=== PATIENT | male | born 1950 | race Hispanic/Latino ===

== ENCOUNTER 2017-06-23 00:35 | Inpatient (IN) | payer MEDICAID ==
[2017-06-23] MEDS ORDERED: Lidocaine 2% Jelly (Uro-Jet) ONE (01:04)
[2017-06-23] MEDS ORDERED: Lidocaine 2% Jelly (Uro-Jet) TOP ONE (01:23)
--- NOTE | 2017-06-23 01:25 | C.PDOC ---
Time Seen by Provider: 06/23/17 00:59 Chief Complaint (Nursing): Male Genitourinary Past Medical History Vital Signs: Last Vital Signs Temp 98 F 06/23/17 00:43 Pulse 89 06/23/17 00:43 Resp 20 06/23/17 00:43 BP 148/89 06/23/17 00:43 Pulse Ox 98 06/23/17 00:43 - Social History Hx Alcohol Use: No Hx Substance Use: No - Immunization History Hx Tetanus Toxoid Vaccination: No Hx Influenza Vaccination: No Hx Pneumococcal Vaccination: No ED Course And Treatment O2 Sat by Pulse Oximetry: 98 Disposition Counseled Patient/Family Regarding: Studies Performed, Diagnosis - Disposition Disposition Time: 01:22 Condition: FAIR
--- NOTE | 2017-06-23 01:28 | C.PDOC ---
History Of Present Illness Patient is a 66 y/o male who presents to the ED with complaints of urinary retention and hematuria. Patient admits he has not urinated in the last 4-5 hours, describing pain as sharp, cramping, suprapubic. Patient has a PSHx of TURP last week by Dr. Cavazos. No other physical complaints at this time. Time Seen by Provider: 06/23/17 00:59 Chief Complaint (Nursing): Male Genitourinary History Per: Patient History/Exam Limitations: no limitations Onset/Duration Of Symptoms: Hrs Current Symptoms Are (Timing): Still Present Severity: Severe Pain Scale Rating Of: 6 Quality Of Discomfort: Sharp, Cramping Associated Symptoms: denies: Fever, Chills Alleviating Factors: None Recent travel outside of the [place]: No Additional History Per: Patient Past Medical History Reviewed: Historical Data, Nursing Documentation, Vital Signs Vital Signs: Last Vital Signs Temp 97.2 F L 06/23/17 01:30 Pulse 63 06/23/17 01:30 Resp 16 06/23/17 01:30 BP 120/80 06/23/17 01:30 Pulse Ox 98 06/23/17 01:39 - Medical History PMH: No Chronic Diseases Surgical History: No Surg Hx Family History: States: No Known Family Hx - Social History Hx Alcohol Use: No Hx Substance Use: No - Immunization History Hx Tetanus Toxoid Vaccination: No Hx Influenza Vaccination: No Hx Pneumococcal Vaccination: No Review Of Systems Constitutional: Negative for: Fever, Chills Cardiovascular: Negative for: Chest Pain Respiratory: Negative for: Shortness of Breath Gastrointestinal: Positive for: Abdominal Pain (suprapubic pain) Genitourinary: Positive for: Hematuria, Other (urinary retention) Musculoskeletal: Negative for: Back Pain Skin: Negative for: Rash Neurological: Negative for: Weakness Psych: Negative for: Anxiety Physical Exam - Physical Exam Appears: Non-toxic, In Acute Distress Skin: Warm, Dry Head: Normacephalic Oral Mucosa: Moist Neck: Supple Chest: Symmetrical Cardiovascular: Rhythm Regular Respiratory: No Rales, No Rhonchi, No Wheezing Gastrointestinal/Abdominal: Soft, Tenderness (suprapubic), Distention, No Guarding, No Rebound Male Genital: Normal Inspection, No Inguinal Swelling, No Scrotal Swelling Extremity: Normal ROM Extremity: Bilateral: Atraumatic Pulses: Left Dorsalis Pedis: Normal, Right Dorsalis Pedis: Normal Neurological/Psych: Oriented x3, Normal Speech Gait: Steady ED Course And Treatment - Laboratory Results Result Diagrams: 06/23/17 01:49 06/23/17 01:49 O2 Sat by Pulse Oximetry: 98 Pulse Ox Interpretation: Normal Progress Note: Plan: blood work ordered. Xylocaine, zofran, morphine, and IV fluids administered. A 22 frisian 3-way duvall catheter was placed without difficulty; patient tolerated procedure well. Started irigation; on re- evaluation, patient feels better , and the hematuria is slowly clearing Disposition Discussed With Dr.: Dameon Bassett Comment: accepted the pt on his service and took over the care at 3 AM Doctor Will See Patient In The: ED Counseled Patient/Family Regarding: Studies Performed, Diagnosis - Disposition Disposition: HOSPITALIZED Disposition Time: Condition: FAIR Forms: [facility] (Estonian) - Clinical Impression Clinical Impression: Acute urinary retention, Hematuria - Scribe Statement The provider has reviewed the documentation as recorded by the Scribe Arpita Awad All medical record entries made by the Scribe were at my direction and personally dictated by me. I have reviewed the chart and agree that the record accurately reflects my personal performance of the history, physical exam, medical decision making, and the department course for this patient. I have also personally directed, reviewed, and agree with the discharge instructions and disposition. Decision To Admit - Pt Status Changed To: Hospital Disposition Of: Inpatient - Admit Certification Admit to Inpatient:: After my assessment, the patient will require hospitalization for at least two midnights. This is because of the severity of symptoms shown, intensity of services needed, and/or the medical risk in this patient being treated as an outpatient. - InPatient: Physician Admission Certification: I certify that this patient requires 2 or more midnights of care for the following reason:: After my assessment, the patient will require hospitalization for at least two midnights. This is because of the severity of symptoms shown, intensity of services needed, and/or the medical risk in this patient being treated as an outpatient. - . Bed Request Type: Regular Admitting Physician: Dameon Bassett Patient Diagnosis: Acute urinary retention
[2017-06-23] MEDS ORDERED: Morphine 4 MG/ML VIAL ONE ×3 (01:49→05:04)
[2017-06-23] MEDS ORDERED: Sodium Chloride 0.9% 1,000 ML ONE (01:50)
[2017-06-23 01:54] LABS: BASO # 0.1 K/uL (0.0-0.2); BASO % 0.7 % (0.0-2.0); EOS # 0.2 K/uL (0.0-0.7); EOS % 1.9 % (0.0-4.0); HEMOGLOBIN 13.8 g/dL (12.0-18.0); LYMPH # 2.8 K/uL (1.0-4.3); LYMPH % 25.3 % (20.0-40.0); MEAN CELL VOLUME 92.8 fL (80.0-94.0); MEAN CORPUSCULAR HEMOGLOBIN 32.2 pg (27.0-31.0); MEAN CORPUSCULAR HGB CONC 34.7 g/dL (33.0-37.0); MEAN PLATELET VOLUME 7.1 fL (7.2-11.7); MONO # 0.5 K/uL (0.0-0.8); MONO % 4.5 % (0.0-10.0); NEUT # 7.4 K/uL (1.8-7.0); NEUT % 67.6 % (50.0-75.0); NRBC % 0.1 % (0.0-2.0); RBC 4.3 Mil/uL (4.40-5.90); RED CELL DISTRIBUTION WIDTH 13.4 % (11.5-14.5)
[2017-06-23] MEDS: Sodium Chloride 0.9% 1,000 ML IV SCH ×3 (01:58→21:26)
[2017-06-23 02:01] LABS: PROTHROMBIN TIME 11.6 SECONDS (9.7-12.2)
[2017-06-23 02:08] LABS: BLOOD UREA NITROGEN 17 mg/dL (9-20); GFR AFRICAN-AMERICAN > 60; GFR NON-AFRICAN AMERICAN > 60
[2017-06-23] MEDS ORDERED: Morphine 4 MG/ML VIAL IVP ONE (02:47)
--- NOTE | 2017-06-23 07:15 | CT ---
EXAM: CT Abdomen and Pelvis Without Intravenous Contrast CLINICAL HISTORY: 66 years old, male; Pain; Abdominal pain; Additional info: Abd distention TECHNIQUE: Axial computed tomography images of the abdomen and pelvis without intravenous contrast. All CT scans at this facility use one or more dose reduction techniques, viz.: automated exposure control; ma/kV adjustment per patient size (including targeted exams where dose is matched to indication; i.e. head); or iterative reconstruction technique. 747 images are submitted. Coronal and sagittal reformatted images were created and reviewed. COMPARISON: No relevant prior studies available. FINDINGS: Lower thorax: Bibasilar nonspecific infiltrates are present, consistent with atelectasis or pneumonia. Small to moderate hiatal hernia. ABDOMEN:Limitations: Absence of IV contrast decreases sensitivity for detecting solid organ and vascular abnormality and injury. Liver: Unremarkable. Gallbladder and bile ducts: Unremarkable. No ductal dilation. Pancreas: Unremarkable. No ductal dilation. Spleen: Unremarkable. No splenomegaly. Adrenals: Unremarkable. No mass. Kidneys and ureters: Bilateral perinephric scarring and inflammation related mild to moderate hydroureteronephrosis likely due to distended bladder. No calcified ureteral stones are identified. Stomach and bowel: There is gastroduodenal distention with relative transition in the left upper quadrant seen on image 43 series 2 correlation with clinical data is recommended if upper GI obstruction is clinically suspected. Diverticulosis. No mucosal thickening. Appendix: Normal appendix. PELVIS: Bladder: Distended bladder measuring 17 cm with a large hyperdense bladder hematoma and hemorrhage measuring 10 cm. There is Lau catheter which appears to be distended in the base of the bladder/proximal prostatic urethra as seen on image 94 series 2. Repositioning is recommended if clinically indicated. Reproductive: Enlarged prostate gland. ABDOMEN and PELVIS: Intraperitoneal space: There is inflammatory change within the root of the mesentery. There are multiple small subcentimeter mesenteric lymph nodes. Mild inhomogeneity of the central mesentery with scattered subcentimeter lymph nodes. --- Nonspecific finding - possible reactive infectious process, mesenteric panniculitis vs. other inflammatory process. No free air. No significant fluid collection. Bones/joints: No acute fracture. No dislocation. Soft tissues: There is a fat-containing umbilical hernia. Vasculature: Unremarkable. No abdominal aortic aneurysm. Lymph nodes: Subcentimeter lymph nodes. Other findings: COPD. IMPRESSION: 1. Distended bladder measuring 17 cm with a large hyperdense bladder hematoma and hemorrhage measuring 10 cm. 2. There is Lau catheter which appears to be distended in the base of the bladder/proximal prostatic urethra as seen on image 94 series 2. Repositioning further into the bladder is recommended if clinically indicated. 3. There is gastroduodenal distention with relative transition in the left upper quadrant seen on image 43 series 2 correlation with clinical data is recommended if ileus versus upper GI obstruction is clinically suspected. 4. Bilateral perinephric scarring and inflammation related mild to moderate hydroureteronephrosis likely due to distended bladder. No calcified ureteral stones are identified.
[2017-06-23] MEDS ORDERED: Gentamicin 160 MG in Sodium Chloride 0.9% 100 ML IVPB ONE (13:14)
[2017-06-23] MEDS ORDERED: Ciprofloxacin 400mg/200ml D5W 400 MG/200 ML BAG IVPB ONE (13:14)
[2017-06-23] MEDS ORDERED: HYDROmorphone 0.5 mg/0.5 ml ISec IVP PRN (13:18)
[2017-06-23] MEDS ORDERED: Propofol 10 mg/ml Inj (20 ML) ONE (13:38)
--- NOTE | 2017-06-23 14:11 | CP.PCM.PN ---
Subjective - Date & Time of Evaluation Date of Evaluation: 06/23/17 Time of Evaluation: 12:00 - Subjective Subjective: PT was evaluated,ct reviewed, pt has large amount of clotted blood in blader will procede with cysto evac clots today. Jesus Objective - Vital Signs/Intake and Output Vital Signs (last 24 hours): Temp Pulse Resp BP Pulse Ox 97.7 F 75 20 160/81 H 97 06/23/17 06:10 06/23/17 06:10 06/23/17 06:10 06/23/17 06:10 06/23/17 06:10 - Medications Medications: Current Medications Hydromorphone HCl (Dilaudid) 0.5 mg IVP Q10M PRN PRN Reason: Pain, moderate (4-7) Stop: 06/23/17 15:18 Sodium Chloride (Sodium Chloride 0.9%) 1,000 mls @ 100 mls/hr IV .Q10H [facility] Last Admin: 06/23/17 13:09 Dose: Not Given Gentamicin Sulfate 160 mg/ (Sodium Chloride) 104 mls @ 104 mls/hr IVPB ONCE ONE Stop: 06/23/17 14:13 Ibuprofen (Motrin Tab) 400 mg PO Q8H PRN PRN Reason: Pain, moderate (4-7) Pneumococcal Polyvalent Vaccine (Pneumovax 23 Vaccine) 0.5 ml IM .ONCE ONE Stop: 06/25/17 12:07 - Labs Labs: 06/23/17 01:49 06/23/17 01:49 PT 11.6 SECONDS (9.7-12.2) 06/23/17 01:49 INR 1.0 06/23/17 01:49 APTT 27 SECONDS (21-34) 06/23/17 01:49
--- NOTE | 2017-06-23 14:15 | PCM.SURG1 ---
Surgeon's Initial Post Op Note - Surgeon's Notes Surgeon: Jesus Tax Expert: serafin Type of Anesthesia: General LMA Anesthesia Administered By: staff Pre-Operative Diagnosis: URINARY CLOT RETENTION Operative Findings: lARGE AMOUNT OF CLOTTED BLOD IM BLADDER Post-Operative Diagnosis: SAME Operation Performed: CYSTO EVACUATION OF CLOTS Specimen/Specimens Removed: CLOTTED BLOOD Estimated Blood Loss: EBL {In ML}: 300 (OLD CLOTTED POND) Blood Products Given: N/A Drains Used: No Drains Post-Op Condition: Good Date of Surgery/Procedure: 06/23/17 Time of Surgery/Procedure: 14:15
[2017-06-23] MEDS ORDERED: Oxycodone/Acetaminophen 5/325 mg Tab PO PRN (14:42)
--- NOTE | 2017-06-23 16:23 | CON ---
DATE: REASON FOR THE CONSULTATION: Gross hematuria and urinary retention. THE HISTORY OF THE PRESENT ILLNESS: The patient had a GreenLight laser prostatectomy approximately 3 weeks ago and was doing well until Sunday when he began having blood, then he was unable to urinate. He came to the emergency room. The patient had a Lau catheter inserted by the emergency staff and he was admitted to the hospital. The patient underwent CAT scan, which showed that he had a large amount of clotted blood within his bladder and that the Lau catheter was blown up in the posterior urethra. REVIEW OF SYSTEMS: Respiratory system: The patient has no shortness of breath or wheezing. Cardiac history: The patient has no chest pain or palpitations. GI: The patient has no nauseousness, vomiting or change in bowel habits. : The patient has a history of GreenLight laser approximately 3 weeks ago. He had been voiding without difficulty until Sunday. Orthopedic history: The patient has no history of orthopedic fractures or joint disease or deformities. Neurological system: The patient has no history of tremors, weakness, slurred speech. Has no history of prior CVA. Integumentary: The patient has no history of skin lesions or skin problems. Psychiatric history: The patient has no history of psychiatric illness. PHYSICAL EXAMINATION: VITAL SIGNS: The patient is afebrile, temperature is 98.6; blood pressure is 122/80; respirations are 30 and pulse is 68. LABORATORY DATA: I have also reviewed the patient's lab data. He has a normal hemoglobin and hematocrit. Urinalysis shows grossly bloody urine. I have also reviewed the patient's CAT scan of the abdomen and pelvis, which shows a large amount of clotted blood in the bladder, urinary retention and the Lau catheter balloon in the prostatic fossa. IMPRESSION: My impression is urinary clot retention, malpositioned Lau catheter. PLAN: After reviewing the films and examining the patient, I feel the patient needs to proceed to the OR today. We notified the OR and waiting for the next available time. Marcin Lee MD
--- NOTE | 2017-06-23 18:47 | OP ---
PROCEDURE DATE: 06/23/2017 PREOPERATIVE DIAGNOSIS: Urinary clot retention and malpositioned Lau catheter. PROCEDURE: Cystoscopy, evacuation of clots and insertion of hematuria catheter, FINDINGS: A large amount of clotted blood, approximately 300 mL, within the bladder. No visible site of active bleeding. Evidence of previous GreenLight laser prostatectomy. The procedure is as follows. DESCRIPTION OF PROCEDURE: Prior to the procedure, the patient was asked to sign a detailed informed consent. The patient's entire chart was reviewed. The patient agreed to the procedure and was brought into the room and draped and prepped in the usual manner. Time-out was taken according to the rules and regulations of [facility]. The patient's Lau catheter was removed and the patient was cystoscoped with a #25 Storz panendoscope. The pendulous and membranous urethra were normal. Prostatic urethra showed evidence of previous laser prostatectomy, but no evidence of obstruction. The bladder was entered atraumatically. It was filled with clotted blood. The clots were irrigated out with a Aaron syringe until all clots were removed from the bladder. The bladder was inspected thoroughly with both the 30 and 70-degree lens. There was no evidence of urothelial tumor or stone. There was some minor oozing from the prostatic fossa consistent with the recent postoperative state. The bladder was filled. The catheter was removed and a #24 three-way 30 mL hematuria catheter was inserted into the bladder and clear irrigant fluid drainage resulted. It was inflated with the appropriate amount of saline and CBI was began immediately. The CBI was clear. The patient was sent to the recovery room in good condition. Marcin Lee MD
--- NOTE | 2017-06-23 22:25 | HP ---
HISTORY OF PRESENT ILLNESS: This is a 66-year-old white male, who came to the emergency room with a history of retention of urine. The patient has hematuria. The patient claims he is passing his blood clots. The patient denies having any dizziness. The patient is not on any medication. No history of chest pain or shortness of breath. PAST MEDICAL HISTORY: History of BPH. MEDICATIONS: The patient is not on any medication. FAMILY HISTORY: No known inherited disease. SOCIAL HISTORY: Nonsmoker, nonalcoholic. No IVDA. REVIEW OF SYSTEMS RESPIRATORY SYSTEM: Negative for shortness of breath. CARDIOVASCULAR SYSTEM: Negative for chest pain. GASTROINTESTINAL SYSTEM: Negative for nausea or vomiting. Lower abdominal pain present. CENTRAL NERVOUS SYSTEM: No focal neurological complaints. The patient has hematuria. No fever. No backache. PSYCHIATRIC: The patient is stable. All other systems are negative. ALLERGIES: NO KNOWN ALLERGIES. PHYSICAL EXAMINATION: GENERAL: This is a 66-year-old white male, alert and oriented, comfortable. VITAL SIGNS: Temperature 98.8, pulse 70 per minute, respirations normal, blood pressure 120/78 mmHg, and pulse ox is 100% on room air. HEENT: Normal. JVP is flat. Carotids, no bruit. LUNGS: No rales, no wheezing. HEART: S1, S2 normal. No gallop. No murmur. ABDOMEN: Soft, nontender. No organomegaly. CENTRAL NERVOUS SYSTEM: No focal neurological deficits. LABORATORY DATA: In the emergency room, the patient had a CT scan of the pelvis and abdomen done, which shows a large amount of blood in the bladder. The patient's Lau catheter is half way. IMPRESSION: Hematuria, acute urinary retention. PLAN: The patient will be admitted to the floor. We will get consult with Dr. Cavazos. The patient may need cystoscopy. Other workup as needed. Darlene Bajwa MD
[2017-06-24] MEDS: Sodium Chloride 0.9% 1,000 ML IV SCH ×2 (06:00→08:30)
[2017-06-24 08:21] LABS: BASO % 0.4 % (0.0-2.0); EOS # 0.2 K/uL (0.0-0.7); EOS % 2.9 % (0.0-4.0); LYMPH # 2.4 K/uL (1.0-4.3); MEAN CELL VOLUME 94.5 fL (80.0-94.0); MEAN CORPUSCULAR HEMOGLOBIN 31.8 pg (27.0-31.0); MEAN CORPUSCULAR HGB CONC 33.6 g/dL (33.0-37.0); MEAN PLATELET VOLUME 7.5 fL (7.2-11.7); MONO # 0.5 K/uL (0.0-0.8); MONO % 6.5 % (0.0-10.0); NEUT # 4.8 K/uL (1.8-7.0); NEUT % 60.2 % (50.0-75.0); RBC 3.71 Mil/uL (4.40-5.90); RED CELL DISTRIBUTION WIDTH 13.4 % (11.5-14.5); WHITE BLOOD COUNT 8.1 K/uL (4.8-10.8)
[2017-06-24 08:39] LABS: HEMOGLOBIN 11.8 g/dL (12.0-18.0)
[2017-06-24 08:47] LABS: ALB/GLOB RATIO 1.2 (1.0-2.1); ALBUMIN 3.2 g/dL (3.5-5.0); ALT/SGPT 22 U/L (21-72); AST/SGOT 13 U/L (17-59); BLOOD UREA NITROGEN 9 mg/dL (9-20); CALCIUM 8.2 mg/dl (8.6-10.4); GFR AFRICAN-AMERICAN > 60; GFR NON-AFRICAN AMERICAN > 60
--- NOTE | 2017-06-24 19:44 | CP.PCM.PN ---
Subjective - Date & Time of Evaluation Date of Evaluation: 06/24/17 Time of Evaluation: 11:00 - Subjective Subjective: NO HEMATURIA. HB DROP NOTED 11.6 Objective - Vital Signs/Intake and Output Vital Signs (last 24 hours): Temp Pulse Resp BP Pulse Ox 98.1 F 73 20 116/72 97 06/24/17 16:42 06/24/17 16:42 06/24/17 16:42 06/24/17 16:42 06/24/17 16:42 Intake and Output: 06/24/17 06/25/17 18:59 06:59 Intake Total 1280 Output Total 1525 Balance -245 - Medications Medications: Current Medications Ciprofloxacin (Cipro) 500 mg PO BID [facility] Last Admin: 06/24/17 17:21 Dose: 500 mg Sodium Chloride (Sodium Chloride 0.9%) 1,000 mls @ 100 mls/hr IV .Q10H [facility] Last Admin: 06/24/17 08:30 Dose: Not Given Ibuprofen (Motrin Tab) 400 mg PO Q8H PRN PRN Reason: Pain, moderate (4-7) Last Admin: 06/24/17 08:05 Dose: 400 mg Oxycodone/Acetaminophen (Percocet 5/325 Mg Tab) 1 tab PO Q4H PRN PRN Reason: pain Stop: 06/26/17 14:43 Pneumococcal Polyvalent Vaccine (Pneumovax 23 Vaccine) 0.5 ml IM .ONCE ONE Stop: 06/25/17 12:07 - Labs Labs: 06/24/17 08:16 06/24/17 08:16 PT 11.6 SECONDS (9.7-12.2) 06/23/17 01:49 INR 1.0 06/23/17 01:49 APTT 27 SECONDS (21-34) 06/23/17 01:49 - Constitutional Appears: No Acute Distress, Chronically Ill - Eye Exam Eye Exam: PERRL - ENT Exam ENT Exam: Normal Exam - Respiratory Exam Respiratory Exam: Clear to Ausculation Bilateral, NORMAL BREATHING PATTERN - Cardiovascular Exam Cardiovascular Exam: REGULAR RHYTHM, +S1, +S2 - GI/Abdominal Exam GI & Abdominal Exam: Soft, Normal Bowel Sounds - Back Exam Back Exam: NORMAL INSPECTION - Neurological Exam Neurological Exam: Alert, Awake, CN II-XII Intact, Normal Gait, Oriented x3 - Psychiatric Exam Psychiatric exam: Normal Affect, Normal Mood Assessment and Plan - Assessment and Plan (Free Text) Assessment: SAME. Plan: PER .
[2017-06-25] MEDS: Sodium Chloride 0.9% 1,000 ML IV SCH ×2 (03:16→14:06)
[2017-06-25 08:24] VITALS: BP 113/74; RESP 20
[2017-06-25 08:30] LABS: BASO # 0.1 K/uL (0.0-0.2); BASO % 1.1 % (0.0-2.0); EOS # 0.4 K/uL (0.0-0.7); EOS % 5.1 % (0.0-4.0); HEMOGLOBIN 11.9 g/dL (12.0-18.0); LYMPH # 2.7 K/uL (1.0-4.3); LYMPH % 32.8 % (20.0-40.0); MEAN CELL VOLUME 93.9 fL (80.0-94.0); MEAN CORPUSCULAR HEMOGLOBIN 32.2 pg (27.0-31.0); MEAN CORPUSCULAR HGB CONC 34.3 g/dL (33.0-37.0); MEAN PLATELET VOLUME 7.3 fL (7.2-11.7); MONO # 0.4 K/uL (0.0-0.8); MONO % 5.5 % (0.0-10.0); NEUT # 4.6 K/uL (1.8-7.0); NEUT % 55.5 % (50.0-75.0); RBC 3.7 Mil/uL (4.40-5.90); RED CELL DISTRIBUTION WIDTH 13.6 % (11.5-14.5); WHITE BLOOD COUNT 8.3 K/uL (4.8-10.8)
[2017-06-25 09:13] LABS: ALBUMIN 3.3 g/dL (3.5-5.0); ALT/SGPT 32 U/L (21-72); AST/SGOT 15 U/L (17-59); BLOOD UREA NITROGEN 9 mg/dL (9-20); CALCIUM 8.7 mg/dl (8.6-10.4); GFR AFRICAN-AMERICAN > 60; GFR NON-AFRICAN AMERICAN > 60
[2017-06-25] MEDS ORDERED: Pneumococcal 23-Valent Vaccine IM ONE (12:06)
--- NOTE | 2017-06-25 12:07 | CP.PCM.PN ---
Subjective - Date & Time of Evaluation Date of Evaluation: 06/25/17 Time of Evaluation: 12:06 - Subjective Subjective: Urine remains clear w/o cbi. Lau removed for voiding trial if voids ox may be discharged. Jesus Objective - Vital Signs/Intake and Output Vital Signs (last 24 hours): Temp Pulse Resp BP Pulse Ox 97.4 F L 80 20 113/74 96 06/25/17 08:22 06/25/17 08:22 06/25/17 08:22 06/25/17 08:22 06/25/17 08:22 Intake and Output: 06/25/17 06/25/17 06:59 18:59 Intake Total 2000 Output Total 1600 Balance 400 - Medications Medications: Current Medications Ciprofloxacin (Cipro) 500 mg PO BID [facility] Last Admin: 06/25/17 09:33 Dose: 500 mg Sodium Chloride (Sodium Chloride 0.9%) 1,000 mls @ 100 mls/hr IV .Q10H [facility] Last Admin: 06/25/17 03:16 Dose: 100 mls/hr Ibuprofen (Motrin Tab) 400 mg PO Q8H PRN PRN Reason: Pain, moderate (4-7) Last Admin: 06/24/17 08:05 Dose: 400 mg Oxycodone/Acetaminophen (Percocet 5/325 Mg Tab) 1 tab PO Q4H PRN PRN Reason: pain Stop: 06/26/17 14:43 Pneumococcal Polyvalent Vaccine (Pneumovax 23 Vaccine) 0.5 ml IM .ONCE ONE Stop: 06/25/17 12:07 - Labs Labs: 06/25/17 08:20 06/25/17 08:20 PT 11.6 SECONDS (9.7-12.2) 06/23/17 01:49 INR 1.0 06/23/17 01:49 APTT 27 SECONDS (21-34) 06/23/17 01:49
--- NOTE | 2017-06-25 12:15 | CP.PCM.PN ---
Subjective - Date & Time of Evaluation Date of Evaluation: 06/25/17 Time of Evaluation: 12:11 - Subjective Subjective: DISCUSSED WITH DR. GASTELUM. MATTHEWS CATHETER REMOVED. ANEMIA Objective - Vital Signs/Intake and Output Vital Signs (last 24 hours): Temp Pulse Resp BP Pulse Ox 97.4 F L 80 20 113/74 96 06/25/17 08:22 06/25/17 08:22 06/25/17 08:22 06/25/17 08:22 06/25/17 08:22 Intake and Output: 06/25/17 06/25/17 06:59 18:59 Intake Total 2000 Output Total 1600 Balance 400 - Medications Medications: Current Medications Ciprofloxacin (Cipro) 500 mg PO BID [facility] Last Admin: 06/25/17 09:33 Dose: 500 mg Sodium Chloride (Sodium Chloride 0.9%) 1,000 mls @ 100 mls/hr IV .Q10H [facility] Last Admin: 06/25/17 03:16 Dose: 100 mls/hr Ibuprofen (Motrin Tab) 400 mg PO Q8H PRN PRN Reason: Pain, moderate (4-7) Last Admin: 06/24/17 08:05 Dose: 400 mg Oxycodone/Acetaminophen (Percocet 5/325 Mg Tab) 1 tab PO Q4H PRN PRN Reason: pain Stop: 06/26/17 14:43 - Labs Labs: 06/25/17 08:20 06/25/17 08:20 PT 11.6 SECONDS (9.7-12.2) 06/23/17 01:49 INR 1.0 06/23/17 01:49 APTT 27 SECONDS (21-34) 06/23/17 01:49 - Constitutional Appears: No Acute Distress, Chronically Ill - Eye Exam Eye Exam: Normal appearance, PERRL - ENT Exam ENT Exam: Mucous Membranes Moist - Respiratory Exam Respiratory Exam: Clear to Ausculation Bilateral, NORMAL BREATHING PATTERN - Cardiovascular Exam Cardiovascular Exam: REGULAR RHYTHM, +S1, +S2 - GI/Abdominal Exam GI & Abdominal Exam: Soft, Normal Bowel Sounds - Back Exam Back Exam: NORMAL INSPECTION - Neurological Exam Neurological Exam: Alert, Awake, CN II-XII Intact, Normal Gait, Oriented x3 - Psychiatric Exam Psychiatric exam: Normal Affect, Normal Mood Assessment and Plan - Assessment and Plan (Free Text) Assessment: HEMATURIA. Plan: OK FOR DISCHARGE HOME IF PT VOIDS.
--- NOTE | 2017-06-25 14:03 | CP.PCM.PN ---
Objective - Vital Signs/Intake and Output Vital Signs (last 24 hours): Temp Pulse Resp BP Pulse Ox 97.4 F L 80 20 113/74 96 06/25/17 08:22 06/25/17 08:22 06/25/17 08:22 06/25/17 08:22 06/25/17 08:22 Intake and Output: 06/25/17 06/25/17 06:59 18:59 Intake Total 2000 Output Total 1600 Balance 400 - Medications Medications: Current Medications Ciprofloxacin (Cipro) 500 mg PO BID [facility] Last Admin: 06/25/17 09:33 Dose: 500 mg Sodium Chloride (Sodium Chloride 0.9%) 1,000 mls @ 100 mls/hr IV .Q10H [facility] Last Admin: 06/25/17 03:16 Dose: 100 mls/hr Ibuprofen (Motrin Tab) 400 mg PO Q8H PRN PRN Reason: Pain, moderate (4-7) Last Admin: 06/24/17 08:05 Dose: 400 mg Oxycodone/Acetaminophen (Percocet 5/325 Mg Tab) 1 tab PO Q4H PRN PRN Reason: pain Stop: 06/26/17 14:43 - Labs Labs: 06/25/17 08:20 06/25/17 08:20 PT 11.6 SECONDS (9.7-12.2) 06/23/17 01:49 INR 1.0 06/23/17 01:49 APTT 27 SECONDS (21-34) 06/23/17 01:49
[2017-06-25 16:19] VITALS: PULSE 76; TEMP 98; O2SAT 95
== END 2017-06-25 16:33 | disposition home or self-care (01) | DRG 820 ==
LOC: C.ER 00:35 → C.3T 03:49
PROVIDERS: ADMIT Internal Medicine; ATTEND Internal Medicine
PROC: 0T9B80Z Drainage of Bladder with Drainage Device, Via Natural or Artificial Opening Endoscopic (ICD-10-PCS; principal; 2017-06-23 13:00)
DX: T83.83XA Hemorrhage due to genitourinary prosthetic devices, implants and grafts, initial encounter (principal); D64.9 Anemia, unspecified; R31.0 Gross hematuria; R33.8 Other retention of urine